=== PATIENT | male | born 1995 | race Caucasian/White ===

== ENCOUNTER 2019-09-16 16:38 | Emergency (ER) | payer BC, SELFPAY ==
[2019-09-16 16:53] VITALS: BP 113/98; PULSE 87; RESP 20; TEMP 36.8; O2SAT 100
--- NOTE | 2019-09-16 17:01 | ED.GENADULT ---
HPI - General Adult General Chief complaint: Eye Problems Stated complaint: eyes watery/drainage Time Seen by Provider: 09/16/19 17:01 Source: patient Mode of arrival: ambulatory Limitations: no limitations History of Present Illness HPI narrative: 23-year-old male patient presents to the [facility] with complaints of allergy symptoms. Patient states for the past 5 days he has had watery eyes, runny nose, itchiness in the eyes, nose. Patient denies any coughing, sore throat, chest pain, shortness breath, abdominal pain, nausea, vomiting or diarrhea. Patient denies any fevers. Patient states he has been taking [id number] Zyrtec and Flonase for his symptoms. Patient states he has had history of allergy symptoms before in the past. Related Data Allergies Allergy/AdvReac Type Severity Reaction Status Date / Time latex Allergy Unknown Verified 06/23/15 16:41 Cat Dander Allergy Unknown Uncoded 09/17/15 18:31 Dog Dander Allergy Unknown Uncoded 09/17/15 18:31 Review of Systems Review of Systems: Narrative: CONSTITUTIONAL: Denies fever, chills, or sweats. EYES: Denies visual changes, redness, or discharge. Positive itchy bilateral eyes ENT: Positive rhinorrhea, denies congestion, sore throat, or otalgia. CARDIOVASCULAR: Denies chest pain, palpitations, or edema. RESPIRATORY: Denies cough or dyspnea. GASTROINTESTINAL: Denies abdominal pain, nausea, vomiting, or diarrhea. GENITOURINARY: Denies dysuria or hematuria. SKIN: Denies rash or itching. MUSCULOSKELETAL: Denies back pain, joint pain, or myalgia. NEUROLOGIC: Denies headache, numbness, or weakness. PSYCHIATRIC: Denies anxiety or depression. [facility] Family History Family History Other Carcinoma of colon Family history of coronary artery disease Social History Social History Smoking status: Never smoker Alcohol intake: never Gender identity (if verbalized by the patient): Male Comments At the time of my signature I agree with nursing past medical history, surgical, social, and family history. There is no relevant family history pertinent to the presenting complaint. Exam Narrative: Exam Narrative: GENERAL: Well-appearing, well-nourished, and in no acute distress. HEAD: Normocephalic, atraumatic. EYES: PERRLA and EOM intact without limitation or complaint of pain, no periorbital soft tissue swelling ,no erythema, warmth or tenderness noted, no obvious deformity. No crusting or swelling.no tearing or draining.No photophobia. No nystagmus No FB or lesion on lid eversion. Corneas grossly clear, no obvious FB or hyphens/hypopyon. Slight injection to sclera bilateral eyes. Lids and lashes clear. ENT: Nares with erythema and edema noted bilaterally, no active rhinorrhea or epistaxis. Mucous membranes moist. Bilateral TMs are clear with no erythema or foreign bodies in the canal. Posterior pharynx with no erythema, tonsillar margin, exudates or lesions present. NECK: Supple. No lymphadenopathy CHEST: Clear to auscultation. No respiratory distress. HEART: Regular rate and rhythm. No murmur heard. Normal peripheral pulses. ABDOMEN: Soft, nontender, nondistended, normal active bowel sounds. EXTREMITIES: Normal range of motion. No edema. SKIN: Warm, dry, no rash. NEURO: No focal deficits. Alert and oriented x3. Course Vital Signs Vital signs: Vital Signs Temperature 36.8 C 09/16/19 16:53 Pulse Rate 87 09/16/19 16:53 Respiratory Rate 20 09/16/19 16:53 Blood Pressure 113/98 H 09/16/19 16:53 Pulse Oximetry 100 09/16/19 16:53 Temperature 36.8 C 09/16/19 16:53 Pulse Rate 87 09/16/19 16:53 Respiratory Rate 20 09/16/19 16:53 Blood Pressure 113/98 H 09/16/19 16:53 Pulse Oximetry 100 09/16/19 16:53 Vital signs reviewed. The patient has been informed that they may have pre-hypertension or Hypertension based on a BP reading in the
== END 2019-09-16 17:16 | disposition home or self-care (01) ==
PROVIDERS: Emergency Provider Nurse Practitioner Family
DX: J30.1 Allergic rhinitis due to pollen (principal); H10.13 Acute atopic conjunctivitis, bilateral
CPT/HCPCS: 99213; G0463

== ENCOUNTER 2020-07-05 11:29 | Emergency (ER) | payer OTHER, BC, SELFPAY ==
[2020-07-05 11:50] VITALS: BP 144/68; PULSE 79; RESP 20; TEMP 36.9; O2SAT 100
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
== END 2020-07-05 12:20 | disposition home or self-care (01) ==
PROVIDERS: Emergency Provider Nurse Practitioner
DX: M25.512 Pain in left shoulder (principal); S16.1XXA Strain of muscle, fascia and tendon at neck level, initial encounter; V43.52XA Car driver injured in collision with other type car in traffic accident, initial encounter
CPT/HCPCS: 99213; G0463

== ENCOUNTER 2022-04-05 16:02 | Emergency (ER) | payer OTHER, SELFPAY ==
--- NOTE | ~2022-04-05 | XR_ITS ---
EXAMINATION: XR tibia fibula LT 2V INDICATION: Left leg pain TECHNIQUE: Two views of the left tibia and fibula are obtained on four radiographs COMPARISON: None available FINDINGS: Bone alignment is normal. There is no fracture. There is mild anterior soft tissue swelling overlying the distal tibia. IMPRESSION: 1. No acute osseous abnormality. Reviewed, dictated and finalized at location A.
[2022-04-05 16:23] VITALS: BP 119/79; PULSE 73; RESP 18; TEMP 36.6; O2SAT 99
--- NOTE | 2022-04-05 16:34 | ED.LOWEXIN ---
HPI - Extremity Injury (Lower) General Chief Complaint: Extremity Injury, Lower Stated Complaint: lt leg injury Time Seen by Provider: 04/05/22 16:35 Source: patient Mode of arrival: ambulatory Limitations: no limitations History of Present Illness HPI Narrative: 26 y/o male presented for c/o left stroud pain after injury yesterday. States he was walking on a floating boat dock when the he fell through the panel and scraped the stroud on concrete. States it was immediately swollen and painful. Endorses feeling 'stiff.' He cleansed the site and applied triple antibiotic ointment and bandaids. Denies numbness, tingling or weakness of the extremity. Rates pain 3/10. Ambulates without assist. Related Data Home Medications Medication Instructions Recorded Confirmed No Home Medications 08/28/20 01/06/22 Allergies Allergy/AdvReac Type Severity Reaction Status Date / Time latex Allergy Mild Rash Verified 04/05/22 16:39 Cat Dander Allergy Mild Sneezing Uncoded 04/05/22 16:39 Dog Dander Allergy Mild Sneezing Uncoded 04/05/22 16:39 Review of Systems Review of Systems: CONSTITUTIONAL: Denies body aches, fever, chills EYES: Denies visual changes ENT: Denies rhinorrhea, congestion CARDIOVASCULAR: Denies chest pain, palpitations, or edema. RESPIRATORY: Denies cough or dyspnea. GASTROINTESTINAL: Denies abdominal pain, nausea, vomiting, or diarrhea. SKIN: reports leg wound MUSCULOSKELETAL: Denies back pain, joint pain, or myalgia. NEUROLOGIC: Denies headache, numbness, tingling, or weakness. All systems reviewed & are unremarkable except as noted in HPI and below PMFSH Past Medical History Medical History Ascariasis Headache disorder Neoplasm of skin of back Shortness of breath Family History Family History Other Carcinoma of colon Family history of coronary artery disease Social History Social History Smoking status: Never smoker Alcohol intake: current Alcohol use details: social Gender identity (if verbalized by the patient): Male Comments At time of signature, I have reviewed and agree with nursing past medical, surgical, social and family history unless otherwise noted. Please see nursing chart for further information. There is no relevant family history pertinent to the presenting complaint Exam Narrative: GENERAL: Well-appearing CHEST: LCTAB HEART: Regular rate and rhythm. Normal and equal peripheral pulses. EXTREMITIES: Approx 12cm x 4cm abrasion to left stroud, approx 4mm puncture at proximal aspect of wound, no active drainage; mild pretibial swelling and tenderness; LLE has normal strength and sensation, normal range of motion. No obvious deformity; pulse palpable and equal bilaterally, skin warm, dry, pink. Capillary refill less than 3 seconds. SKIN: Warm, dry, no rash. NEURO: Alert and oriented x3. Course Course Emergency Course: Patient is aware of diagnosis, understands and agrees to treatment plan. Anticipatory guidance given. Patient agrees to follow-up as directed and is aware of reasons to seek care at the emergency department. Portions of this record may have been created with voice recognition software Level of Care: Express Care Visit Vital Signs Vital signs: Vital Signs Temperature 97.9 F 04/05/22 16:23 Pulse Rate 73 04/05/22 16:23 Respiratory Rate 18 04/05/22 16:23 Blood Pressure 119/79 04/05/22 16:23 Pulse Oximetry 99 04/05/22 16:23 Oxygen Delivery Room Air 04/05/22 16:23 Temperature 97.9 F 04/05/22 16:23 Pulse Rate 73 04/05/22 16:23 Respiratory Rate 18 04/05/22 16:23 Blood Pressure 119/79 04/05/22 16:23 Pulse Oximetry 99 04/05/22 16:23 Oxygen Delivery Room Air 04/05/22 16:23 Reviewed MDM - Extremity Injury (Lower) MDM Narrative Medical decision talita
== END 2022-04-05 17:06 | disposition home or self-care (01) ==
PROVIDERS: Emergency Provider Nurse Practitioner Family
DX: S80.812A Abrasion, left lower leg, initial encounter (principal); W17.89XA Other fall from one level to another, initial encounter
CPT/HCPCS: 73590; 99213; G0463

== ENCOUNTER 2024-10-18 16:19 | Outpatient (CLI) | payer OTHER, SELFPAY ==
--- NOTE | ~2024-10-18 | CT_ITS ---
EXAMINATION: CT sinus wo con DATE: 10/18/2024 17:20 INDICATION: Deviated nasal septal TECHNIQUE: Computed tomography (CT) of the paranasal sinuses was performed without intravenous contra st. The dose-length product was 309.35 mGy-cm. Automated exposure control and iterative reconstructio n technique were employed. COMPARISON: None FINDINGS: There is mild mucosal thickening of the maxillary sinuses. Leftward nasal septal deviation. Ostiomeatal units are patent. No air-fluid levels. Mastoids are pneumatized. IMPRESSION: 1. Mild maxillary sinus disease. Reviewed, dictated and finalized at location A.
--- OUTSIDE RECORDS SUMMARY | 2024-10-18 16:23 | XMS_ITS | Clinical Summary ---
Author Organization [facility] Address [address] [place] [id number] Care Team Providers Care Pier Master Assistant Name Role Phone Unavailable Primary Care Provider Unavailabl e Social History Tobacco Use Types Packs/Day Years Used Date Smoking Tobacco: Never Assessed Sex and Gender Information Value Date Recorded Sex Assigned at Not on file Legal Sex Male 7:01 PM CDT Gender Identity Not on file Sexual Orientation Not on file Plan of Treatment Health Maintenance Due Date Last Done Comments Annual Physical 1997 Hepatitis C 2012 DTaP, Tdap and Td Vaccines ( 1 - Tdap) 2013 Hepatitis B Vaccines (1 of 3 - 19+ 3-dose series) 2013 COVID-19 Vaccine (2023-2 5 season) 2024 HPV Vaccines Aged Out No longer eligi ble based on patient's age to complete this topic Meningococcal B Vaccine Aged Out No l onger eligible based on patient's age to complete this topic Meningococcal Vaccine Aged Out No carson eva eligible based on patient's age to complete this topic Pneumococcal Vaccine: Pediat rics (0 to 5 Years) and At-Risk Patients (6 to 64 Years) Aged Out No longer eligible b ased on patient's age to complete this topic RSV Immunizations Under 20 Months Aged Out No longer eligible based on patient's age to complete this topic
--- OUTSIDE RECORDS SUMMARY | 2024-10-18 16:24 | XMS_ITS | Clinical Summary ---
Author Organization [facility] Address [address] [facility] [address] [place] [address] Phone Care Team Providers Care Aoc Plans Intelligence Officer Name Role Phone Unavailable Primary Care Provider Unavailabl e Allergies Active Allergy Reactions Criticality Noted Date Comments Latex Rash 05/30/2018 Medications nitazoxanide (ALINIA) 500 MG Tablet Take 1 Tab by mouth every 12 hours. 28 Tab 05/30/2018 Active praziquantel (BILTRICIDE) 600 MG Tablet Take 1 Tab by mouth 3 times daily. 30 Tab 06/06/2018 Active Multiple Vitamins-Mineral s (MULTIVITAMIN PO) Take 1 Tab by mouth daily. Active fish oil-omega-3 fatty acids 1000 MG Capsule Take 1,000 mg by mouth daily. Active Ascorbic Acid (VITAMIN C) 1000 MG Tablet Take 1 Tab by mouth daily. Active Family History Medical History Relation Name Comments No Known Problems Father Cancer Maternal Grandfather skin Colon Polyps Maternal Grandfather [address] colonoscopy Colon Cancer Maternal Grandmother Colon Polyps Maternal Uncle Colon Polyps Mother Relation Name Status Comments Father Alive Maternal Grandfather Maternal Grandmother Maternal Uncle Mother Alive Social History Tobacco Use Types Packs/Day Years Used Date Smoking Tobacco: Never Smokeless Tobacco: Never Alcohol Use Standard Drinks/Week Comments Yes 3 (1 standard drink = 0.6 oz pur e alcohol) Every other week Sexually Active Control Partners Comments Yes Female Sex and Gender Information Value Date Recorded Sex Assigned at Not on file Legal Sex Male 3:15 PM CDT Gender Identity Not on file Sexual Orientation Not on file 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 on file Not on file Not on file Last Filed Vital Signs Vital Sign Reading Time Taken Comments Blood Pressure 115/55 06/16/2018 11:30 AM [employer] Pulse 76 06/16/2018 9:06 AM [employer] Temperature 36 C (96.8 F) 06/16/2018 11:30 AM [employer] Respiratory Rate 14 06/16/2018 11:30 AM [employer] Oxygen Saturation 100% 06/16/2018 11:30 AM [employer] Inhaled Oxygen Concentration - - Weight 88.5 kg (195 lb) 05/31/2018 11:00 AM [employer] Height 190.5 cm (6' 3 ) 05/31/2018 11:00 AM [employer] Body Mass Index 24.37 05/31/2018 11:00 AM [employer] Plan of Treatment Health Maintenance Due Date Last Done Comments Hepatitis C Virus (HCV) Screening 1994 TdaP Immunization 1994 Influenza Immunization (#1) 2024 SARS-COV-2 Immunization (2023- season) 2024 Respiratory Syncytial Virus (RSV) Immunization (Adult) (1 - 1-dose 75+ series) 2069 Hepatitis B Immunization Completed 996, 01/03/1995, 1994 DTaP/Tdap/Td Immunization Discontinued 1997, 02/09/1996, 05/02/1995, Additional history exists Meningococcal Immunization (ACWY) Aged Out No longer eligible based on patient's age to complete this topic Pneumococcal Immunization Combined Aged Out No longer eligible based on patient's age to complete this topic Rotavirus Immunization Aged Out No lo nger eligible based on patient's age to complete this topic Insurance [id number] [facility]
--- OUTSIDE RECORDS SUMMARY | 2024-10-18 16:24 | XMS_ITS | Clinical Summary ---
Author Organization [facility] Address [address] [place] [address] Care Team Providers Care Sustainability Engineer Name Role Phone Unavailable Primary Care Provider Unavailabl e Source Comments [facility],non-owned Affiliates and Associated Physician Practices is amultiple site organization consisting of ambulatory clinics and hospital sitesin [place], [place], [place] and [place]. This disclosure is being madepursuant to the Care Everywhere program and may not contain all information available regarding this patient. Last updated 18.[facility] [employer] Social History Tobacco Use Types Packs/Day Years Used Date Smoking Tobacco: Never Assessed Sex and Gender Information Value Date Recorded Sex Assigned at Not on file Gender Identity Not on file Sexual Orientation Not on file Plan of Treatment Health Maintenance Due Date Last Done Comments HIV SCREENING 2009 HEPATITIS C SCREENING 10/09/2012 DTAP/TDAP/TD VACCINES (1 - Tdap) 2013 HEPATITIS B VACCINE (1 of 3 - 19+ 3-dose series) 2013 COVID-19 VACCINE ( - 2023-2 5 season) 2024 DEPRESSION SCREENING 07/11/2024 INFLUENZA VACCINE (Season Ended) 2025 ZOSTER VACCINE (1 of 2) 2044 HIB VACCINE Aged Out No longer eligi ble based on patient's age to complete this topic HPV VACCINE Aged Out No longer eligi ble based on patient's age to complete this topic MENINGOCOCCAL (Group B) VACC INE SHARED DECISION-MAKING Aged Out No longer eligibl e based on patient's age to complete this topic MENINGOCOCCAL GROUPS A/C/Y/W VACCINE Aged Out No longer eligible b ased on patient's age to complete this topic PNEUMOCOCCAL VACCINE Aged Out No long er eligible based on patient's age to complete this topic
--- OUTSIDE RECORDS SUMMARY | 2024-10-18 16:24 | XMS_ITS | Encounter Summary ---
Author Organization [facility] Address [address] [place] [address] Care Team Providers Care Pourer Crane Ladle Name Role Phone Unavailable Primary Care Provider Unavailabl e Encounter Details Date Type Department Care Team (Late st Contact Info) Description 08/31/2022 Lab Requisition [facility] [address] [facility] [address] [place] [id number] Jeffry Danielson MD [address] [place] [id number] Social History Tobacco Use Types Packs/Day Years Used Date Smoking Tobacco: Never Assessed Sex and Gender Information Value Date Recorded Sex Assigned at Not on file Gender Identity Not on file Sexual Orientation Not on file documented as of this encounter Plan of Treatment Not on file documented as of this encounter Procedures Procedure Name Priority Date/Time Associated Diagnosis Comments DERMATOPATHOLOGY Routine 08/30/2022 12:0 0 AM [employer] MACHINE OPERATOR documented in this encounter Results * DERMATOPATHOLOGY (08/30/2022 12:00 AM [employer] MACHINE OPERATOR) Case Report Dermatopathology Report Case: [id number] Authorizing Provider: Jeffry Danielson MD Collected: 08/30/2022 12:00 AM Ordering Location: [facility] Received: 08/31/2022 04:12 PM Pathologist: Swapna Callaway MD Specimen: Skin, right 5th finger 3 5:31 PM [facility] MACHINE OPERATOR DERMATOPATHOLOGY LABORATORY Final Diagnosis Specimen A. SKIN, right 5th finger: JUNCTIONAL MELANOCYTIC NEVUS, OF ACRAL SKIN (D22.61) PRESENT AT MARGIN (see microscopic description and comment) 3 5:31 PM [facility] MACHINE OPERATOR DERMATOPATHOLOGY LABORATORY Clinical History Nevus vs MM. Path#: [id number] 3 5:31 PM [facility] Gross Description Specimen A: Received is one formalin filled container labeled with the patient's name and designated right 5th finger. The specimen consists of a shave biopsy measuring [id number]. Jar 0. 5:31 PM [facility] Microscopic Description Specimen A. SKIN, right 5th finger: Sections show acral type skin with collections of melanocytes at the dermal-epidermal junction that are forming fairly well defined th ques. This lesion is present at the margin of the specimen. COMMENT: If this specimen is sampled from a larger lesion, these findings may not be surgical sales representative of the entire lesion. Clinicopathologic correlation is recommended. 3 5:31 PM [facility] Disclaimer An external and internal positive and negative controls are appropriate for the histochemical, immunohistochemical and immunofluorescence stain(s) in this case (if any), except where stated explicitly. The performance characteristics of the stain(s) cited in this report were developed and its performance characteristic determined by the Dermatopathology Laboratory at [facility], directed by Dr. Elizabet Callaway. These tests need not be, and therefore are not, approved by the [place] Food and Drug Administration. The tests are used for clinical purposes. Billing Codes Specimen Charges Stain Charges 79561 1 3 5:31 PM [facility] Embedded Images 3 5:31 PM [facility] Pathology/Cytolog y TISSUE SPECIMEN FROM SKIN / Unknown 08/30/2022 08/31/2022 4:12 PM [employer] MACHINE OPERATOR Jeffry Danielson MD LAB - PATHOLOGY/CYTO LOGY ORDERABLES DERMATOPATHOLOGY LABORATORY [facility] - Department of Dermatology [address] [phone] documented in this encounter Visit Diagnoses Not on filedocumented in this encounter
== END 2024-10-18 16:20 | disposition home or self-care (01) ==
PROVIDERS: PCP Family Medicine; Visit Provider Family Medicine
DX: J32.0 Chronic maxillary sinusitis (principal); J34.2 Deviated nasal septum
CPT/HCPCS: 70486